=== PATIENT | female | born 1960 | race Caucasian/White ===

== ENCOUNTER 2024-10-02 14:09 | Outpatient (CLI) | payer MEDICARE, SELFPAY ==
--- NOTE | ~2024-10-02 | MR_ITS ---
MRI of the left ankle Clinical history: Pain Technique: Coronal proton-density and proton-density fat-sat images, axial proton-density and proton- density fat-sat images, and sagittal proton-density and proton-density fat-sat images were acquired. Findings: Syndesmotic ligaments are intact. Anterior and posterior talofibular ligaments, and calcane ofibular ligament are intact. Deltoid ligament intact. Medial flexor tendons, peroneal tendons, anterior extensor tendons, and Achilles tendon are intact. There is no osteochondral lesion of the talar dome. Prior ORIF of the distal fibula, medial malleolus , and posterior malleolus. No acute fracture or bone marrow edema evident. There is probable mild deg enerative change of the posterior aspect of the tibiotalar joint. Remaining joint spaces are intact. Bone marrow signals appear unremarkable aside from areas of susceptibility artifact. Plantar fascia d emonstrates mild thickening with adjacent soft tissue edema at the plantar origin. Tiny plantar calca jt spur present. Impression: Probable mild plantar fasciitis. Prior ORIF at the distal fibula, medial malleolus, and posterior malleolus. No acute fracture or disl ocation seen. Reviewed, dictated and finalized at [facility]. Impression: Probable mild plantar fasciitis. Prior ORIF at the distal fibula, medial malleolus, and posterior malleolus. No acute fracture or dislocation seen.
--- NOTE | ~2024-10-02 | MR_ITS ---
MRI of the left foot Clinical history: Pain TECHNIQUE: Axial proton-density and proton-density fat-sat images, sagittal T1-weighted and STIR imag es, and coronal T1-weighted and proton-density fat-sat images were performed. FINDINGS: No suspicious bone marrow edema or fracture seen. No evidence for osteitis. Probable minima l degenerative change of the first tarsometatarsal joint. Remaining joint spaces appear intact. No hua int effusion seen. Lisfranc ligament is intact. Flexor and extensor tendons are intact. No intermetatarsal bursitis or Webb's neuroma. No significa nt joint effusion. Intrinsic musculature of the foot unremarkable. Visualized plantar fascia intact. No soft tissue mass or fluid collection. 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 Reviewed, dictated and finalized at location .
== END 2024-10-02 14:10 | disposition home or self-care (01) ==
LOC: GOSHIMG 14:11
PROVIDERS: PCP Orthopaedic Surgery; Visit Provider Orthopaedic Surgery
DX: M79.672 Pain in left foot (principal)
CPT/HCPCS: 73718; 73721